=== PATIENT | female | born 1995 | race African-American/Black ===

== ENCOUNTER 2016-10-21 10:13 | Inpatient (IN) | payer OTHER ==
[2016-10-21] MEDS: ELECTROLYTE-148 SOLN 1,000 ML IV SCH ×2 (11:00→15:30)
[2016-10-21] MEDS ORDERED: PROMETHAZINE HCL 25 MG/1 ML VIAL IVPUSH ONE (11:14)
[2016-10-21] MEDS ORDERED: BUTORPHANOL TARTRATE 1 MG/ML VIAL IVPB ONE (11:14)
[2016-10-21] MEDS ORDERED: AMPICILLIN - 100 ML IVPB ONE (11:34)
--- NOTE | 2016-10-21 11:51 | HP ---
Past Medical History - Primary Care Physician PCP:: Kianna Reynolds - Admission Chief Complaint: 21 yrs , 39.6/7 weeks IUP by sono , onset Lp since midnight, she was evaluated & sent home due to latent labor , 1cm dilatation at 3.30 am today. she has returned with uc frequent & strong . History of Present Illness: PNC at [facility] . Wt gain 11 lbs work Up :A Pos, Rpr nr, Hbsag neg, Rubella pos, Quantiferon neg, , Hiv neg, GBS -pos, Afp neg . 1 hr GTT 154. 3 hr gtt , 74, 173, 147, 97. 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 No: Gastritis Hepatobiliary: No: Hepatitis B Renal/: No: UTI ...: 3 ...Para: 0 ...Induced : 2 ...LMP: 01/23/16 ... Weeks Gestation by Dates: 38.6 ...EDC by Dates: 10/29/16 ...EDC by Sono: 10/22/16 (39.6 ) Heme/Onc: Yes: Anemia Infectious Disease: No: AIDS, HIV, STD's Psych: No: Addictions, Anxiety, Bipolar, Depression, Panic Endocrine: No: Diabetes Mellitus, Hyperthyroidism, Hypothyroidism - Past Surgical History Past Surgical History: Yes: None Hx Myomectomy: No Hx Transabdominal Cerclage: No - Smoking History Smoking history: Never smoked - Alcohol/Substance Use History of Substance Use: reports: None Home Medications - Allergies Allergies/Adverse Reactions: Allergies Allergy/AdvReac Type Severity Reaction Status Date / Time No Known Allergies Allergy Verified 10/21/16 13:53 - Home Medications Home Medications: Ambulatory Orders Vitamins (Sjr) - 1 tab PO DAILY 07/31/16 Physical Exam - Maternity Vital Signs: Selected Entries 10/21/16 10:13 Temperature 98.1 F Pulse Rate 103 H Respiratory 19 Rate Blood Pressure 128/78 Weight 211 lb Constitutional: Yes: Well Nourished, Obese (211 lbs), Other (pt vomiting) Eyes: Yes: WNL HENT: Yes: WNL, Normocephalic Neck: Yes: WNL Cardiovascular: Yes: WNL Lungs: Clear to auscultation Breast(s): Yes: WNL - Abdominal Exam/OB Fundal Height: 40 Number of Fetuses: Single Presentation: Vertex Contractions: Yes Regularity: Irregular (3-5 min) Intensity: Mod/Strong Monitor Mode: External Heart Rate (range): 140-150 Heart Rate Location: LUQ Accelerations: Uniform Decelerations: None - Vaginal Exam/OB Vaginal Bleediing: No Speculum Exam: No Dilatation (cm): 3 cm Effacement (%): 90 Amniotic Membrane Status: Intact Presentation: Vertex/Position (exam at 10.30 am) Station: -2 - Physical Exam Musculoskeletal: Yes: WNL Extremities: Yes: WNL. No: Calf Tenderness Integumentary: Yes: WNL, Tattoos Deep Tendon Reflex Grade: Normal +2 ...Motor Strength: WNL Psychiatric: Yes: WNL - Labs Lab Results: Laboratory Tests 10/21/16 10/21/16 10/21/16 11:45 11:45 11:45 WBC 10.6 H D Hgb 10.2 L Hct 29.5 L Plt Count 212 Neutrophils % 77.8 D Lymphocytes % 16.9 D Monocytes % 4.9 Eosinophils % 0.1 D Basophils % 0.3 INR 1.07 PTT (Actin FS) 32.4 Sodium 137 Potassium 4.1 D Chloride 105 Carbon Dioxide 22 BUN 6 L Creatinine 0.5 L Random Glucose 84 HIV 1&2 Antibody Screen HIV P24 Antigen Blood Type 10/21/16 10/21/16 11:45 12:10 WBC Hgb Hct Plt Count Neutrophils % Lymphocytes % Monocytes % Eosinophils % Basophils % INR PTT (Actin FS) Sodium Potassium Chloride Carbon Dioxide BUN Creatinine Random Glucose HIV 1&2 Antibody Screen Negative HIV P24 Antigen Negative Blood Type A POSITIVE Problem List - Problems (1) with 39 completed weeks gestation Code(s): Z3A.39 - 39 WEEKS GESTATION OF (2) Labor established Code(s): ECQ4922 - (3) Positive GBS test Code(s): B95.1 - STREPTOCOCCUS, GROUP B, CAUSING DISEASES CLASSD ELSWHR Assessment/Plan 21 yrs 39.6/7 weeks in early labor plan labor analgesia Stadol + phenrgan prn , epidural labor analgesia prn pitocin augmentaion . gbs prophylaxis with iv Ampicillin trial of labor for vaginal delivery
[2016-10-21] MEDS ORDERED: OXYTOCIN 15 UNITS/ LR 250 ML 250 ML IVPB SCH (12:00)
[2016-10-21 12:09] LABS: BASOPHIL 0.3 % (0-2.0); EOSINOPHIL 0.1 % (0-4.5); MCH 25.9 pg (25.7-33.7); MCHC 34.4 g/dl (32.0-36.0); MEAN CELL VOLUME 75.3 fl (80-96); MEAN PLT VOLUME 7.6 fl (7.5-11.1); NEUTROPHILS 77.8 % (42.8-82.8); PLATELET COUNT 212 K/MM3 (134-434); RDW 21.2 % (11.6-15.6); WHITE BLOOD COUNT 10.6 K/mm3 (4.0-10.0)
[2016-10-21 12:36] LABS: INR 1.07 (0.82-1.09); PROTHROMBIN TIME (PATIENT) 11.8 SEC (9.98-11.88)
[2016-10-21 12:39] LABS: ACTIVATED PTT 32.4 SECONDS (26.9-34.4); CALCIUM 9.2 mg/dL (8.5-10.1)
[2016-10-21 12:40] LABS: CREATININE 0.5 mg/dL (0.55-1.02)
[2016-10-21 13:40] LABS: ANISOCYTOSIS 1+; PLATELET ESTIMATE ADEQUATE (NORMAL); TARGET CELLS FEW
[2016-10-21 13:41] LABS: HIV 1 & 2 AB NEGATIVE; HIV 1 AGp24 NEGATIVE
[2016-10-21 13:45] VITALS: BMI 36.2
--- NOTE | 2016-10-21 14:51 | PN ---
Progress Note, Labor Vaginal Exam #1 Labor Exam Date: 10/21/16 Labor Exam Time: 14:20 Heart Rate (range): 130 Dilatation: 4 Effacement (%): 100 Amniotic Membrane Status: Intact Presentation: Vertex/Position Station: -2 Remarks: uc q 2-4 min fhr cat-1 11.15 am stadol + phenrgan given. requests epidural Selected Entries 10/21/16 14:00 Temperature 97.5 F L Pulse Rate 83 Blood Pressure 140/83 Vaginal Exam #2 Labor Exam Date: 10/21/16 Labor Exam Time: 18:40 Heart Rate (range): 140-150 Dilatation: 10 Effacement (%): 100 Amniotic Membrane Status: Ruptured (Arom clear small amount) Presentation: Vertex/Position Station: +1 Remarks: FHR cat-1 UC 2-3 min . pt has no urge to push yet. wait for passive descent. Selected Entries 10/21/16 10/21/16 10/21/16 18:00 18:15 18:30 Temperature 99.3 F Pulse Rate 109 H 102 H Blood Pressure 107/57 105/55 10/21/16 18:45 Temperature Pulse Rate 111 H Blood Pressure 110/73 19.30 hr pt encouraged to push, vx +2/+3 station
[2016-10-21] MEDS: AMPICILLIN - 100 ML IVPB SCH ×2 (15:30→18:55)
[2016-10-21] MEDS ORDERED: FENTANYL/BUPIVACAINE/NS/PF - PCEA - 50 ML DISP.SYRIN EP SCH (15:30)
[2016-10-21] MEDS ORDERED: WITCH HAZEL 50% (TUCKS) 40 PAD/JAR PAD TP PRN (20:19)
[2016-10-21] MEDS ORDERED: oxyCODONE HCL 5 MG TABLET PO PRN (20:19)
[2016-10-21] MEDS ORDERED: BENZOCAINE 28 GM HEMORRHOIDAL OINTMENT TP PRN (20:19)
[2016-10-21] MEDS ORDERED: METHYLERGONOVINE MALEATE 0.2 MG/1 ML AMP IM PRN (20:19)
[2016-10-21] MEDS ORDERED: BISACODYL 10 MG SUPP.RECT RC PRN (20:19)
[2016-10-21] MEDS ORDERED: BENZOCAINE 20% 57 GM BOTTLE TP PRN (20:19)
--- NOTE | 2016-10-21 20:28 | PN ---
Delivery - Delivery Vaginal Delivery: No Problems, Spontaneous (cord around neck x1 clamped , cut before the delivery of ant shoulder) Type of Anesthesia: Epidural Episiotomy/Laceration: Vaginal Extension/lac, 1st degree (sutured with chr catgut #2/0 .) EBL (cc): 300 Delivery, Single - Stages of Labor Date 1st Stage Initiatied: 10/21/16 Time 1st Stage Initiated: 00:00 Date 2nd Stage Initiated: 10/21/16 Time 2nd Stage Initiated: 18:40 Date of Delivery: 10/21/16 Time of Delivery: 19:53 Date Placenta Delivered: 10/21/16 Time Placenta Delivered: 20:00 Placenta: Yes: Spontaneous, Uterine Exploration - Condition of Mirror Inspector/Glove Turner Present: No Infant Gender: Male Weight: 7 lb 2 oz Position: Right, OA Total Hours ROM (Hrs/Mins): 1hr 20 min - 1 Minute Total Score: 8 5 Minutes Total Score: 9 - [place] Feeding Plan Initial Plan: Elected not to breastfeed exclusively throughout hospitalization Remarks - Remarks Remarks: 21 yrs , 39.6/7 weeks admitted in labor . Obesity & anemia PNC at [facility] GBS pos, rx Iv Ampicillin x3 doses stadol + phenrgan followed by epidural labor analgesia was given . intrapartum course uneventful
[2016-10-21] MEDS ORDERED: D5W-LR W/ 20 UNITS OXYTOCIN 1,000 ML IV SCH (20:30)
[2016-10-21] MEDS: IBUPROFEN 600 MG TABLET (FP) PO PRN (21:56)
[2016-10-21] MEDS: ACETAMINOPHEN 325 MG TABLET (FP) PO PRN (21:56)
[2016-10-21] MEDS: SENNOSIDES/DOCUSATE COMBO (SENNA PLUS) TABLET (UD) PO PRN (21:56)
[2016-10-22 09:17] LABS: BASOPHIL 0.3 % (0-2.0); EOSINOPHIL 0.4 % (0-4.5); MCH 25.8 pg (25.7-33.7); MCHC 34.1 g/dl (32.0-36.0); MEAN CELL VOLUME 75.6 fl (80-96); MEAN PLT VOLUME 7.4 fl (7.5-11.1); NEUTROPHILS 70.8 % (42.8-82.8); PLATELET COUNT 195 K/MM3 (134-434); WHITE BLOOD COUNT 12.1 K/mm3 (4.0-10.0)
[2016-10-22] MEDS: PRENATAL VITAMINS W/ FOLIC ACID TABLET (FP) PO SCH (09:47)
[2016-10-22] MEDS: FERROUS SO4 325 MG TABLET (FP) PO SCH ×2 (09:47→17:01)
[2016-10-22] MEDS: ACETAMINOPHEN 325 MG TABLET (FP) PO PRN ×3 (09:49→22:14)
[2016-10-22] MEDS: IBUPROFEN 600 MG TABLET (FP) PO PRN ×3 (09:50→22:14)
--- NOTE | 2016-10-22 12:19 | PN ---
Post Progress Note - Subjective Subjective: no complains Post Day: 1 Type of Delivery: Vital Signs: Vital Signs Temperature 99.2 F 10/22/16 10:00 Pulse Rate 82 10/22/16 10:00 Respiratory Rate 20 10/22/16 10:00 Blood Pressure 127/65 10/22/16 10:00 O2 Sat by Pulse Oximetry (%) 100 10/21/16 21:00 Breast Exam: Yes: Soft, Other (bF ). No: Engorged Uterus: Yes: Fundus Firm, Fundus below umbilicus, Non-tender Lochia, amount: Moderate Extremities: Yes: Calves non-tender Perineum: Yes: Intact Activity: Ambulating - Labs Labs: CBC WBC 12.1 K/mm3 (4.0-10.0) H 10/22/16 09:00 RBC 3.59 M/mm3 (3.60-5.2) L 10/22/16 09:00 Hgb 9.3 GM/dL (10.7-15.3) L 10/22/16 09:00 Hct 27.2 % (32.4-45.2) L 10/22/16 09:00 MCV 75.6 fl (80-96) L 10/22/16 09:00 MCHC 34.1 g/dl (32.0-36.0) 10/22/16 09:00 RDW 21.0 % (11.6-15.6) H 10/22/16 09:00 Plt Count 195 K/MM3 (134-434) 10/22/16 09:00 MPV 7.4 fl (7.5-11.1) L 10/22/16 09:00 Neutrophils % 70.8 % (42.8-82.8) 10/22/16 09:00 Lymphocytes % 23.3 % (8-40) D 10/22/16 09:00 Monocytes % 5.2 % (3.8-10.2) 10/22/16 09:00 Eosinophils % 0.4 % (0-4.5) D 10/22/16 09:00 Basophils % 0.3 % (0-2.0) 10/22/16 09:00 Platelet Estimate Adequate (NORMAL) 10/21/16 11:45 Anisocytosis 1+ 10/21/16 11:45 Target Cells Few 10/21/16 11:45 Problem List - Problems (1) with 39 completed weeks gestation Code(s): Z3A.39 - 39 WEEKS GESTATION OF (2) Labor established Code(s): VJB3092 - (3) Positive GBS test Code(s): B95.1 - STREPTOCOCCUS, GROUP B, CAUSING DISEASES CLASSD ELSWHR Assessment/Plan anemia .stable. counselled plan ct pp care discharge tomorrow.
[2016-10-22] MEDS: SENNOSIDES/DOCUSATE COMBO (SENNA PLUS) TABLET (UD) PO PRN (22:13)
--- NOTE | 2016-10-23 05:12 | PN ---
Progress Note (short form) - Note Progress Note: ppd 2 no c/o voids ok, no excess vaginal bleeding CBC, BMP 10/22/16 09:00 10/21/16 11:45 Last Vital Signs Temp Pulse Resp BP Pulse Ox 99.4 F 88 20 116/69 100 10/22/16 21:23 10/22/16 21:23 10/22/16 21:23 10/22/16 21:23 10/21/16 21:00 abdomen soft , non tender, no cva uterus firm, non tender lochia mild plan ambulate. d/c home on iron, vit
[2016-10-23] MEDS: ACETAMINOPHEN 325 MG TABLET (FP) PO PRN (07:47)
[2016-10-23] MEDS: FERROUS SO4 325 MG TABLET (FP) PO SCH (07:48)
[2016-10-23] MEDS: IBUPROFEN 600 MG TABLET (FP) PO PRN (07:48)
[2016-10-23] MEDS: PRENATAL VITAMINS W/ FOLIC ACID TABLET (FP) PO SCH (10:24)
[2016-10-23 11:41] VITALS: BP 126/78; PULSE 84; TEMP 98.9
--- NOTE | 2016-10-23 13:35 | DS ---
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 No: Calf Tenderness Edema: Yes Edema: LLE: Trace, RLE: Trace Integumentary: Yes: Tattoos Neurological: Yes: WNL ...Motor Strength: WNL Psychiatric: Yes: WNL, Alert, Oriented Labs: CBC, BMP 10/22/16 09:00 10/21/16 11:45 Delivery - Delivery Vaginal Delivery: No Problems, Spontaneous (cord around neck x1 clamped , cut before the delivery of ant shoulder) Type of Anesthesia: Epidural Episiotomy/Laceration: Vaginal Extension/lac, 1st degree (sutured with chr catgut #2/0 .) EBL (cc): 300 Delivery, Single - Stages of Labor Date 1st Stage Initiatied: 10/21/16 Time 1st Stage Initiated: 00:00 Date 2nd Stage Initiated: 10/21/16 Time 2nd Stage Initiated: 18:40 Date of Delivery: 10/21/16 Time of Delivery: 19:53 Time Placenta Delivered: 20:00 Placenta: Yes: Spontaneous, Uterine Exploration - Condition of Infant 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 Obesity & anemia PNC at [facility] GBS pos, rx Iv Ampicillin x3 doses stadol + phenrgan followed by epidural labor analgesia was given . intrapartum course uneventful . pp course uneventful Anemia counselled discharge today. Discharge Summary Reason For Visit: LABOR Current Active Problems Labor established (Acute) Positive GBS test (Acute) with 39 completed weeks gestation (Acute) - Instructions Diet, Activity, Other Instructions: Post Instructions DIET: Continue good diet high in protein, calcium, and iron rich foods. Drink at least eight (8) glasses of water daily in addition to other fluids. Ct Regular diet MEDICATIONS: Continue vitamins and iron as previously directed. Motrin and Tylenol may be taken for minor discomfort. ACTIVITY: Mild to moderate exercise may be started in two (2) weeks. Take frequent rest periods. Resume normal activity after six (6) week check up. WOUND CARE OF OPERATIVE SITE: Continue use of perineal bottle until vaginal discharge stops. Keep area clean. Shower daily. Keep abdominal wound dry. Report any drainage or redness to physician. Tub baths, tampons and douches are not permitted for [address] Breast feeding & or Bottle feedin BREAST CARE: (For those that are not breast feeding): If engorgement occurs: Wear tight fitting bra. Take Tylenol or Motrin for pain. Apply cold packs (ice in bags to each breast ) FAMILY PLANNING: There are many control alternatives to pursue and they should be discussed at your first office visit. You may resume sexual activity after your six (6) week check up. (Remember, breast feeding is not a contraceptive) NEXT PHYSICIAN APPOINTMENT: Be certain to call for six (6) week appointment, unless otherwise directed. Call Clinic or got to Emergency Dept if you have any of the following: Heavy vaginal bleeding Painful urination Leg pain Unusual odor noted to vaginal bleeding High fever Red streaking noted on breast Referrals: Kianna Reynolds MD [Staff Physician] - - Home Medications Comprehensive Discharge Medication List: Ambulatory Orders Amoxicillin/Potassium Clav [Augmentin 875-125 Tablet] 1 each PO BID #8 tablet Oseltamivir Phosphate [Tamiflu -] 75 mg PO BID #1 capsule 10/04/15 Vitamins (Sjr) - 1 tab PO DAILY 07/31/16 Acetaminophen [Tylenol .Regular Strength -] 650 mg PO Q3H PRN #0 tablet Benzocaine [Americaine 20% [place] -] 1 spray TP PRN PRN #0 bottle 10/22/16 Ferrous Sulfate [Feosol] 325 mg PO BIDWM #60 tab 10/22/16 Ibuprofen [Motrin -] 200 mg PO Q4H PRN #0 tablet 10/22/16 Vitamins (Sjr) - 1 tab PO DAILY tablet 10/22/16
== END 2016-10-23 13:45 | disposition home or self-care (01) | DRG 775 ==
LOC: JLDR 10:13 → MERGE 10:13 → J3W 21:34
PROVIDERS: ADMIT Obstetrics & Gynecology; ATTEND Obstetrics & Gynecology
PROC: 0HQ9XZZ Repair Perineum Skin, External Approach (ICD-10-PCS; principal; 2016-10-21)
PROC: 10E0XZZ Delivery of Products of Conception, External Approach (ICD-10-PCS; 2016-10-21)
PROC: 10907ZC Drainage of Amniotic Fluid, Therapeutic from Products of Conception, Via Natural or Artificial Opening (ICD-10-PCS; 2016-10-21)
DX: O69.81X0 Labor and delivery complicated by cord around neck, without compression, not applicable or unspecified (principal); O99.824 Streptococcus B carrier state complicating childbirth; O70.0 First degree perineal laceration during delivery; O99.02 Anemia complicating childbirth; O99.214 Obesity complicating childbirth; E66.8 Other obesity; Z68.36 Body mass index [BMI] 36.0-36.9, adult; Z3A.39 39 weeks gestation of pregnancy; Z37.0 Single live birth
CPT/HCPCS: 36415; 59409; 80048; 85025; 85610; 85730; 86593; 86850; 86900; 86901; 87389

== ENCOUNTER 2019-03-07 15:14 | Emergency (ER) | payer OTHER ==
[2019-03-07 15:26] VITALS: BP 120/63; PULSE 68; TEMP 98; BMI 32.4
--- NOTE | 2019-03-07 15:31 | PDOC ---
Rapid Medical Evaluation Time Seen by Provider: 03/07/19 15:21 Medical Evaluation: Allergies Allergy/AdvReac Type Severity Reaction Status Date / Time No Known Allergies Allergy Verified 09/29/15 23:30 03/07/19 15:22 I have performed a brief in-person evaluation of this patient. The patient presents with a chief complaint of:irregular menses, recently came off depot. Also may have had been exposed to chlamydia per pt. No vag discharge , abd pain, n/v/f/c Pertinent physical exam findings:stable I have ordered the following:upreg/ua/shefali/chlam The patient will proceed to the ED for further evaluation. Discharge Disposition - Diagnosis Irregular menses - Referrals - Patient Instructions - Post Discharge Activity
[2019-03-07 16:03] LABS: EPI CELLS 5.5 /HPF (0-5/HPF); HYALINE CASTS 0 /lpf (0-8); PH,URINE 8.5 (5.0-8.0); URINE APPEARANCE CLEAR; URINE BACTERIA 90.3 /hpf (NEGATIVE); URINE BILIRUBIN NEGATIVE (NEGATIVE); URINE COLOR YELLOW; URINE GLUCOSE (UA) NEGATIVE (NEGATIVE); URINE KETONE NEGATIVE (NEGATIVE); URINE LEUK ESTERASE TRACE (NEGATIVE); URINE NITRITE NEGATIVE (NEGATIVE); URINE PROTEIN NEGATIVE (NEGATIVE); URINE RBC 1 /hpf (0-4); URINE WBC 1 /hpf (0-5)
[2019-03-07] MEDS ORDERED: AZITHROMYCIN 500 MG TABLET PO ONE (16:29)
[2019-03-07] MEDS ORDERED: AZITHROMYCIN 250 MG TABLET ONE (16:32)
[2019-03-07] MEDS ORDERED: LIDOCAINE HCL 1%, 10 MG/ML (20ML VIAL) ONE (16:32)
--- NOTE | 2019-03-07 16:54 | PDOC ---
History of Present Illness - General History Source: Patient Exam Limitations: Clinical Condition - History of Present Illness Initial Comments: 03/07/19 16:52 Patient with no significant past medical history presented with complaint of abnormal uterine bleeding with menstrual. Twice this month. Patient reported LMP February 16 which lasted for 5 days and again started bleeding again 3 days ago soaking 2 pads a day. Patient reports intermittent cramping lower abdominal pain. Patient reported vaginal bleeding looks like her menstrual period. Patient was using Depo provera for control with the last injection 3 months ago but missed her last injection this month. Patient also report sexual partner tested positive for chlamydia. Denies fever, chills, nausea, vomiting, abdominal pain now. Denies any other symptoms.Denies palpitation, shortness of breath, weakness, headaches Is this a multiple visit Asthma Patient?: No <Nish Raya - Last Filed: 03/07/19 17:00> <Virgilio Blue - Last Filed: 03/07/19 17:51> - General Chief Complaint: Vaginal Bleeding Stated Complaint: PELVIC PAIN/ BLEEDING Time Seen by Provider: 03/07/19 15:21 Past History - Past Medical History Anemia: Yes Asthma: No Cancer: No Cardiac Disorders: No COPD: No Diabetes: No HTN: No Seizures: No Thyroid Disease: No - Reproductive History Is Patient Now?: No Para: 1 - Immunization History Immunization Up to Date: Yes - Psycho Social/Smoking Cessation Hx Smoking History: Current every day smoker Have you smoked in the past 12 months: No Number of Cigarettes Smoked Daily: 5 Information on smoking cessation initiated: No Hx Alcohol Use: No Drug/Substance Use Hx: No Substance Use Type: None Hx Substance Use Treatment: No <Nish Raya - Last Filed: 03/07/19 17:00> <Virgilio Blue - Last Filed: 03/07/19 17:51> - Past Medical History Allergies/Adverse Reactions: Allergies Allergy/AdvReac Type Severity Reaction Status Date / Time No Known Allergies Allergy Verified 03/07/19 15:26 Home Medications: Ambulatory Orders NK [No Known Home Medication] 03/07/19 Review of Systems - Review of Systems Able to Perform ROS?: Yes Is the patient limited Polish proficient: No Constitutional: No: Chills, Fever, Malaise HEENTM: No: Symptoms Reported Respiratory: No: Symptoms reported Cardiac (ROS): No: Symptoms Reported ABD/GI: Yes: Symptoms Reported, See HPI, Abdominal cramping (intermittent cramping lower abdominal pain). No: Abd. Pain w/ defecation, Blood Streaked Bowels, Constipated, Diarrhea, Difficulty Swallowing, Nausea, Poor Appetite, Poor Fluid Intake, Vomiting, Indigestion : Yes: Symptoms Reported, See HPI, Other (vaginal bleeding). No: Burning, Dysuria, Discharge, Frequency Musculoskeletal: No: Symptoms Reported, Back Pain All Other Systems: Reviewed and Negative <Nish Raya - Last Filed: 03/07/19 17:00> *Physical Exam - Vital Signs Last Vital Signs Temp Pulse Resp BP Pulse Ox 98 F 68 18 120/63 100 03/07/19 15:22 03/07/19 15:22 03/07/19 15:22 03/07/19 15:22 03/07/19 15:22 - Physical Exam General Appearance: Yes: Nourished, Appropriately Dressed. No: Apparent Distress HEENT: positive: Normal Voice Neck: positive: Supple Respiratory/Chest: positive: Lungs Clear, Normal Breath Sounds. negative: Respiratory Distress, Accessory Muscle Use Cardiovascular: positive: Regular Rhythm, Regular Rate Female Pelvic Exam: positive: normal external exam, cervical os closed, vaginal bleeding (scant amount of dark blood in vaginal vault c/w menstrual bleeding. no blood pooling in vagina). negative: adnexal tenderness Gastrointestinal/Abdominal: positive: Normal Bowel Sounds, Flat. negative: Tender Musculoskeletal: positive: Normal Inspection Extremity: positive: Normal Capillary Refill, Normal Inspection Integumentary: positive: Normal Color Neurologic: positive: Fully Oriented, Alert, Normal Response <Nish Raya - Last Filed: 03/07/19 17:00> - Vital Signs Last Vital Signs Temp Pulse Resp BP Pulse Ox 98 F 68 18 120/63 100 03/07/19 15:22 03/07/19 15:22 03/07/19 15:22 03/07/19 15:22 03/07/19 15:22 <Virgilio Blue - Last Filed: 03/07/19 17:51> ED Treatment Course - ADDITIONAL ORDERS Additional order review: Laboratory Results 03/07/19 03/07/19 15:52 15:52 Urine Color Yellow Urine Appearance Clear Urine pH 8.5 H D Ur Specific [place] 1.011 Urine Protein Negative Urine Glucose (UA) Negative Urine Ketones Negative Urine Blood 3+ H Urine Nitrite Negative Urine Bilirubin Negative Urine Urobilinogen 1.0 Ur Leukocyte Esterase Trace Urine WBC (Auto) 1 Urine RBC (Auto) 1 Urine Casts (Auto) 0 U Epithel Cells (Auto) 5.5 Urine Bacteria (Auto) 90.3 Urine HCG, Qual Negative <Nish Raya - Last Filed: 03/07/19 17:00> - ADDITIONAL ORDERS Additional order review: Laboratory Results 03/07/19 03/07/19 15:52 15:52 Urine Color Yellow Urine Appearance Clear Urine pH 8.5 H D Ur Specific [place] 1.011 Urine Protein Negative Urine Glucose (UA) Negative Urine Ketones Negative Urine Blood 3+ H Urine Nitrite Negative Urine Bilirubin Negative Urine Urobilinogen 1.0 Ur Leukocyte Esterase Trace Urine WBC (Auto) 1 Urine RBC (Auto) 1 Urine Casts (Auto) 0 U Epithel Cells (Auto) 5.5 Urine Bacteria (Auto) 90.3 Urine HCG, Qual Negative <Virgilio Blue - Last Filed: 03/07/19 17:51> Medical Decision Making - Medical Decision Making 03/07/19 16:54 Patient with no significant past medical history presented with complaint of abnormal uterine bleeding with menstrual. Twice this month. Patient reported LMP February 16 which lasted for 5 days and again started bleeding again 3 days ago. Patient reports intermittent cramping lower abdominal pain. Patient reported vaginal bleeding looks like her menstrual period. Patient was using Depo provera for control with the last injection 3 months ago but missed her last injection this month. Patient also report sexual partner tested positive for chlamydia. Denies fever, chills, nausea, vomiting, abdominal pain now. Denies any other symptoms Exam significant small amount of blood in vaginal vault with no blood pooling. No cervical motion tenderness. Symptoms likely menorrhagia from Depo-Provera. Patient will be treated empirically for gonorrhea and chlamydia with ceftriaxone 250 mg IM and azithromycin 1 g p.o. pending lab results. UA shows no acute abnormality. Patient stable for discharge with HEALTH INFORMATION SYSTEMS TECHNICIAN follow-up for management of menorrhagia <Nish Raya - Last Filed: 03/07/19 17:00> - Medical Decision Making 03/07/19 17:51 I reviewed the case of the mid-level practitioner and was available for consultation while in the emergency department <Virgilio Blue - Last Filed: 03/07/19 17:51> Discharge - Discharge Information Problems reviewed: Yes - Admission No <ElverNish - Last Filed: 03/07/19 17:00> <Virgilio Blue - Last Filed: 03/07/19 17:51> - Discharge Information Clinical Impression/Diagnosis: Irregular menses, Abnormal uterine bleeding (AUB) Condition: Stable Disposition: HOME - Follow up/Referral Referrals: Brody De Leon MD [Staff Physician] - - Patient Discharge Instructions Patient Printed Discharge Instructions: DI for Abnormal Uterine Bleeding Additional Instructions: uterine bleeding is likely caused by the Depo-Provera. Follow-up referred to HEALTH INFORMATION SYSTEMS TECHNICIAN to help regulate your menstrual.. You will be contacted with the urine lab results
== END 2019-03-07 17:04 | disposition home or self-care (01) ==
LOC: JER 15:14
DX: N92.1 Excessive and frequent menstruation with irregular cycle (principal); N93.8 Other specified abnormal uterine and vaginal bleeding; Z20.2 Contact with and (suspected) exposure to infections with a predominantly sexual mode of transmission; D64.9 Anemia, unspecified; F17.210 Nicotine dependence, cigarettes, uncomplicated; Z79.890 Hormone replacement therapy
CPT/HCPCS: 36415; 81003; 84703; 87491; 87591; 99284-25

== ENCOUNTER 2022-12-08 09:41 | Emergency (ER) | payer OTHER ==
[2022-12-08 09:45] VITALS: BP 118/83; PULSE 86; RESP 17; TEMP 97.9; BMI 34.3
[2022-12-08] MEDS ORDERED: LIDOCAINE 5% TOPICAL PATCH TP ONE (11:29)
[2022-12-08] MEDS ORDERED: LIDOCAINE 5% TOPICAL PATCH ONE (11:38)
[2022-12-08] MEDS ORDERED: LIDOCAINE PATCH REMOVAL MC SCH (22:00)
== END 2022-12-08 12:03 | disposition home or self-care (01) ==
LOC: JER 09:41 → JERFT 09:41
DX: M54.50 Low back pain, unspecified (principal); V43.52XA Car driver injured in collision with other type car in traffic accident, initial encounter
CPT/HCPCS: 99283-25